=== PATIENT | male | born 1965 | race African-American/Black ===

== ENCOUNTER 2021-12-20 09:07 | Emergency (ER) | payer OTHER ==
[~2021-12-20] VITALS: Ht 177.8 cm; Wt 93.0 kg
[2021-12-20 09:11] VITALS: BP 150/84
[2021-12-20] MEDS ORDERED: BACITRACIN ZINC OINT UDPKT TOP ONE (10:00)
[2021-12-20] MEDS ORDERED: BO1 TP (10:05)
== END 2021-12-20 10:51 ==
LOC: ER 09:20
DX: S01.81XA Laceration without foreign body of other part of head, initial encounter (principal); X58.XXXA Exposure to other specified factors, initial encounter; Y93.89 Activity, other specified; Y92.89 Other specified places as the place of occurrence of the external cause; Y99.8 Other external cause status; E78.00 Pure hypercholesterolemia, unspecified; I10 Essential (primary) hypertension; Z87.891 Personal history of nicotine dependence
CPT/HCPCS: 99283